=== PATIENT | female | born 1965 | race Caucasian/White ===

== ENCOUNTER 2021-02-18 09:32 | Emergency (ER) | payer OTHER ==
[~2021-02-18] VITALS: Ht 160 cm; Wt 68.0 kg
[2021-02-18] MEDS ORDERED: CYCL0.05OP BOTHEYES (10:21)
[2021-02-18] MEDS ORDERED: ZOLPIDEM TARTRA10 MG PO (10:21)
== END 2021-02-18 11:39 | disposition home or self-care (01) ==
LOC: ER 09:32
DX: S09.90XA Unspecified injury of head, initial encounter (principal); S16.1XXA Strain of muscle, fascia and tendon at neck level, initial encounter; M79.622 Pain in left upper arm; M79.651 Pain in right thigh; Z88.0 Allergy status to penicillin; Z88.8 Allergy status to other drugs, medicaments and biological substances; Z79.899 Other long term (current) drug therapy; W01.198A Fall on same level from slipping, tripping and stumbling with subsequent striking against other object, initial encounter
CPT/HCPCS: 70450; 72125; 99283-25